=== PATIENT | female | born 1930 | race Caucasian/White ===

== ENCOUNTER → 2016-07-23 | Outpatient (CLI) | payer MEDICARE, OTHER ==
[~2016-07-23] MED LIST: CEROVITE SENIO1 EACH PO; DELTASONE DPS10 MG PO; EYE CAP PO; FOSAMAX70 MG PO; HYDROCODON-ACE1 EAC4 PO; LASIX DPS40 MG PO; LEVAQUIN DPS500 MG PO; NORVASC5 MG PO; POTASSIUM CHLO20 ME2 PO; PRAVACHOL20 MG PO; PROVENTIL HFA6.7 GM IH; SYNTHROID112 MCG PO
== END | disposition home or self-care (01) ==
LOC: RAD.S 11:09
DX: Z12.31 Encounter for screening mammogram for malignant neoplasm of breast (principal)

== ENCOUNTER → 2016-10-08 | Outpatient (CLI) | payer MEDICARE, OTHER | END | disposition home or self-care (01) | LOC: RAD.S 13:07 | DX: M81.0 Age-related osteoporosis without current pathological fracture (principal); M85.88 Other specified disorders of bone density and structure, other site ==